=== PATIENT | male | born 1965 | race Caucasian/White ===

== ENCOUNTER 2018-10-18 14:43 | Outpatient (CLI) | payer OTHER | END 2018-10-18 14:44 | disposition home or self-care (01) | LOC: SC 14:43 | PROVIDERS: ATTEND Nurse Practitioner Family | DX: G47.33 Obstructive sleep apnea (adult) (pediatric) (principal) | CPT/HCPCS: 99204; 99212 ==

== ENCOUNTER 2021-03-06 14:49 | Outpatient (CLI) | payer OTHER ==
--- NOTE | 2021-03-06 16:30 | XRAY Report ---
PROCEDURE: Ankle 3 View LT INDICATIONS: PAIN OF LEFT ANKLE JOINT TECHNIQUE: 3 views of the ankle were acquired. COMPARISON: None. FINDINGS: No acute fracture. Posterior calcaneal spurring. Scattered subchondral sclerosis and spurring. Anato silvestre alignment. IMPRESSION: Mild degenerative changes. If the patient's pain or other symptoms persist, consider fur ther evaluation with MRI. Reviewed by: Ronn David MD on 03/06/2021 4:29 PM PDT Approved by: Ronn David MD on 03/06/2021 4:29 PM PDT Station ID: [id number]
== END 2021-03-06 14:50 | disposition home or self-care (01) ==
LOC: DI.S 14:49
PROVIDERS: ATTEND Nurse Practitioner Family
DX: M19.072 Primary osteoarthritis, left ankle and foot (principal)

== ENCOUNTER 2023-10-27 14:51 | Outpatient (CLI) | payer OTHER ==
--- NOTE | 2023-10-27 20:19 | XRAY Report ---
PROCEDURE: Lumbar Spine 2-3V INDICATIONS: LOW BACK PAIN TECHNIQUE: 3 view(s) of the lumbar spine were acquired. COMPARISON: None. FINDINGS: Bones: Vertebral body height and alignment is maintained. No suspicious bony lesions. Disc space delores rowing and hypertrophic facet joints noted lower lumbar spine Soft tissues: Overlying bowel gas pattern is normal. No suspicious soft tissue calcifications. IMPRESSION: Lower lumbar spine degenerative disc disease and arthropathy Reviewed by: Zeb Osborn MD on 10/27/2023 7:18 PM MARTIR Approved by: Zeb Osborn MD on 10/27/2023 7:18 PM AKSINGH Station ID: [id number]
== END 2023-10-27 14:52 | disposition home or self-care (01) ==
LOC: DI.S 14:51
PROVIDERS: ATTEND Nurse Practitioner Family
DX: M47.816 Spondylosis without myelopathy or radiculopathy, lumbar region (principal); M51.36 Other intervertebral disc degeneration, lumbar region

== ENCOUNTER 2023-11-04 14:04 | Outpatient (CLI) | payer OTHER ==
--- NOTE | 2023-11-04 15:00 | Sleep Patient Instructions ---
Sleep Center Visit Summary - Patient Visit Information Reason for Visit: Initial consultation - Patient Instructions Instructions Attached: Insomnia Tx Additional Instructions: You will continue with CPAP therapy with pressure set at 10.5-12 cmH2O. A supply prescription will be updated with your DME. You will be filling out a 2 week sleep diary for evaluation of your insomnia, then followup with Dr. Guy to review. We encourage you to continue to try to lose weight. Please follow up with the sleep care office 1-2 months for evaluation of insomnia. - Clinic Information Contact: [facility] [address] [place] [address] [email or web address] T: [phone]
--- NOTE | 2023-11-04 15:13 | SLEEP CARE CONSULTATION ---
Information from patient questionnaire entered by Carlito Singh. I have reviewed and concur with the information entered by Carlito Singh. This document represents the service I personally performed and the decisions made by me, Dominique Kohli ARNP. History of Present Illness Service Date and Time: 11/04/2023 1404 Reason for Visit: New patient, Previously diagnosed sleep apnea, sleep apnea on CPAP therapy, Re-establish care Chief Complaint: reports: Insomnia, Unrefreshed sleep, Snoring, Excessive daytime sleepiness, Fatigue, Frequent awakenings at night Usual bedtime: 2200 Snores at night: Yes Observed to quit breathing while asleep: No Sleeps alone due to snoring: No Number of times waking at night: 3+ Reasons for waking at night: reports: Other (UNKNOWN) Toss, Turn, or Twitch while sleeping: No Recalls having dreams: No Usually gets out of bed at: 9173-0285 Feels refreshed in the morning: No Morning headache: No Sleepy or fatigued during the day: Yes Ever fallen asleep while driving: No Takes day naps: No Dreams during day naps: No Prior sleep studies: Yes Year and Where: 2010 [facility] Additional HPI information: MISTY CALLAWAY was previously diagnosed to have moderate, AHI 27.3, obstructive sleep apnea-hypopnea syndrome in 2010 here at [facility] and comes in today to re- establish care for CPAP therapy. - Parasomnia Symptoms Ever been unable to move upon waking from sleep: No Walks in sleep: No Talks in sleep: No Ever acted out dreams in sleep: No Ever felt weak in the knees when startled or emotional: No Bothered by creepy, crawly, restless sensations in legs: No Problems with memory or concentration: Yes CPAP Compliance Data - Data Reviewed with Patient Average duration of nightly device use: 7 hours 47 minutes Compliance rate %: 100 (60/60 days used) Current pressure setting (cmH2O): 10.5-12 Average residual AHI: 0.6 Central apnea: 0.1 Obstructive apnea: 0.1 Hypopnea: 0.4 Average large leak: 2 mins 51 secs Compliance data discussion: He has a Dreamstation 2 that he received a couple years ago from [employer] due to recall on his other device. He is with [employer] for his supplies and getting them regularly. He is using a full face mask. Subjective Patient concerns: denies: aerophagia, mask discomfort, air blowing in eyes, mask leak noise, condensation in mask/hose, nasal congestion, dry mouth, nose, throat, epistaxis Observed to snore while using device: No Current pressure setting perceived as: comfortable On therapy, patient: reports: sleeping better, awakening more refreshed, being more awake and alert during the day, more rested overall. 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 Patient is and lives in [place]. Have you smoked in the past 12 months: Yes Cigarettes per day (20/pack): 3 Years of smokin Smoking Pack Years: 4.0 Alcohol use: Yes Alcohol amount and frequency: 2-3 BEERS DAILY Caffeine use: Yes Caffeine amount and frequency: 1 CUP occasional tea Family History Family history of sleep disordered breathing: No Allergies and Home Medications Known drug allergies: Yes ( LISTED) Drug allergies reviewed: Yes Home medication list reviewed: Yes (as listed) Allergy and home medication list: Allergies quetiapine Allergy (Verified 11/02/23 10:57) Home Medications ALPRAZolam [Alprazolam] See Rx Instructions .ROUTE .COMPLEX 11/02/23 [History] Atenolol [Tenormin] See Rx Instructions .ROUTE .COMPLEX 11/02/23 [History] Gabapentin [Gralise] See Rx Instructions .ROUTE .COMPLEX 11/02/23 [History] Losartan [Cozaar] See Rx Instructions .ROUTE .COMPLEX 11/02/23 [History] Mirtazapine See Rx Instructions .ROUTE .COMPLEX 11/02/23 [History] Review of Systems Weight gain over past 5 years: 20 Cardiovascular: reports: high blood pressure Respiratory: reports: shortness of breath Urinary: reports: impotence Psychiatric: reports: anxiety, depression Musculoskeletal: reports: joint pain, back pain Physical Exam Vital signs obtained and entered by: CARLITO Jordan MA Blood Pressure: 154/95 (LEFT ARM) Cuff size: long Heart Rate: 85 O2 Saturation: 96 Height: 5 ft 9 in Weight: 273 lb 9.6 oz Body Mass Index: 40.4 BMI Classification: Morbidly Obese Neck circumference: 22.5 Heart: regular rate and rhythm Lungs: clear bilaterally Impression and Plan 1. Obstructive Sleep Apnea-Hypopnea Syndrome, moderate, with good treatment compliance and good apnea control. On CPAP therapy, the patient has better sleep quality and is more rested overall. He says he is waking up about 2-3 AM nightly in the last year to year and a half. 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 He is waking up couple times a night and is feeling really tired. He will not really feel ready for day until about 12 noon. 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 He used to have to take daughter to school and got up about 6 AM and did not got back to bed. But he currently will get out of bed and sit in a chair until he starts nodding off and he will go back to bed 2-4 times on average. Patient's apnea severity and rationale for treatment to reduce apnea, improve sleep quality and reduce cardiovascular and cerebrovascular events was reviewed. I also reviewed the benefit of consistent device use of CPAP for hypertension, depression/anxiety, insomnia. 2. Obesity, unspecified. Currently patients BMI is 40.4. Obesity increases the risk of apnea, CPAP pressure requirements and overall health risks especially cardiovascular and diabetes. Thus patient is advised to lose weight. 3. Insomnia, sleep maintenance. He is concerned because he is always very tired and cannot feel awake until about noon most days in the last year and a half. He is going to sleep ok but waking up multiple times. Insomnia is generally caused by an irregular sleep schedule, spending too much time in bed, napping, caffeine, electronics, lack of a relaxing bedtime ritual and clock watching. Other factors can include anxiety/depression, pain, medications, and obstructive sleep apnea. I counseled the patient on the importance of a regular sleep schedule, especially the wake time. By waking at the same time, the patient will also feel more alert. He is to get up and stay active at home to avoid nodding and laying back down in bed because too much time spent in bed can cause more sleep disruption as well. A sleep diary will be completed for the next 2 weeks to assist implementation of recommendations and for further evaluation of sleep concerns. He will come back in 1-2 months for further evaluation and possible treatment. * Continue auto CPAP pressure at 10.5-12 cmH2O * Update supply prescription * Notify me if snoring with mask or feeling that the pressure is too much or too little * Attempt to lose weight * Call this office if any problems using CPAP * Return for follow up in 1-[address] Guy for insomnia, or sooner if concerns arise Counseling Topics: Spare mask, Weight loss health impact Prescriptions: Device supplies Follow up with Sleep Care in: 1-2 months (with Dr. Guy for insomnia evaluation) Visit Type: In Office Time Spent with Patient (minutes): 44 Provider Statement: I spent 100% of the Face to Face Visit with the patient with greater than 50% spent counseling the patient and coordination of care.
[2023-11-04 15:19] VITALS: BP 154/95; O2SAT 96
== END 2023-11-04 14:05 | disposition home or self-care (01) ==
LOC: SC 14:04
PROVIDERS: ATTEND Nurse Practitioner Family
DX: G47.33 Obstructive sleep apnea (adult) (pediatric) (principal); E66.01 Morbid (severe) obesity due to excess calories; Z68.41 Body mass index [BMI] 40.0-44.9, adult; G47.00 Insomnia, unspecified; F17.210 Nicotine dependence, cigarettes, uncomplicated
CPT/HCPCS: 99203; 99212